=== PATIENT | male | born 1985 | race Caucasian/White ===

== ENCOUNTER 2018-02-17 21:10 | Observation (INO) | payer OTHER ==
[~2018-02-17] VITALS: Ht 188 cm; Wt 69.0 kg
[2018-02-17] MEDS ORDERED: ZIPRASIDONE 40MG CAPSULE PO SCH (21:30)
[2018-02-18] MEDS ORDERED: MIDAZOLAM 1 MG/ML, 2ML ONE (05:57)
[2018-02-18] MEDS ORDERED: ZIPRASIDONE 20 MG INJ IM ONE ×3 (05:57→15:04)
[2018-02-18] MEDS ORDERED: MIDAZOLAM 1 MG/ML, 2ML IM ONE (06:00)
[2018-02-18] MEDS ORDERED: ZIPRASIDONE 20MG CAPSULE ONE (09:46)
[2018-02-18 12:15] LABS: BASOPHILS % (AUTO) 1 % (0-1); EOSINOPHILS # (AUTO) 0.01 x10^3/uL (0-0.4); EOSINOPHILS % (AUTO) 0 % (1-7); LYMPHOCYTES # (AUTO) 1.21 x10^3/uL (1-3.4); LYMPHOCYTES % (AUTO) 11 % (22-44); MD NO; MEAN CORPUSCULAR HEMOGLOBIN 27.2 pg (27.5-34.5); MEAN CORPUSCULAR HGB CONC 32.8 g/dL (33.2-36.2); MEAN CORPUSCULAR VOLUME 82.8 fL (81-97); MEAN PLATELET VOLUME 7.6 fL (7.4-10.4); MONOCYTES # (AUTO) 0.77 x10^3/uL (0.2-0.8); MONOCYTES % (AUTO) 7 % (2-9); NEUTROPHILS # (AUTO) 9.27 x10^3/uL (1.8-6.8); NEUTROPHILS % (AUTO) 82 % (42-75); PLATELET COUNT 385 x10^3/uL (130-400); RED BLOOD COUNT 5.18 x10^6/uL (4.38-5.82); RED CELL DISTRIBUTION WIDTH 16.1 % (9.4-14.8)
[2018-02-18 12:27] LABS: ALANINE AMINOTRANSFERASE 24 U/L (12-78); ALBUMIN 3.7 g/dL (3.4-5.0); ANION GAP 8 mmol/L (5-15); CALCIUM 9.2 mg/dL (8.5-10.1); CHLORIDE 104 mmol/L (98-107); SALICYLATE LEVEL 2.3 mg/dL (2.8-20.0)
[2018-02-18 12:29] LABS: ALKALINE PHOSPHATASE 116 U/L (45-117); BILIRUBIN,TOTAL 0.7 mg/dL (0.2-1.0); CREATININE 0.82 mg/dL (0.7-1.3); TOTAL PROTEIN 8.2 g/dL (6.4-8.2)
[2018-02-18 12:37] LABS: ACETAMINOPHEN < 2 mcg/mL (10-30)
[2018-02-18] MEDS ORDERED: ZIPRASIDONE 20 MG INJ IM PRN (14:30)
[2018-02-18 23:23] LABS: CULTURE INDICATED? YES; MICROSCOPIC INDICATED
[2018-02-18 23:25] LABS: AMPHETAMINE SCREEN, URINE Negative (Negative); BARBITURATE SCREEN, URINE Negative (Negative); BENZODIAZEPINE SCREEN, URINE Positive (Negative); CANNABINOID SCREEN, URINE Negative (Negative); COCAINE SCREEN, URINE Negative (Negative); METHADONE SCREEN, URINE Negative (Negative); OPIATE SCREEN, URINE Negative (Negative)
[2018-02-19] MEDS ORDERED: BENZONATATE 100 MG CAPSULE ONE (06:21)
[2018-02-19] MEDS ORDERED: BENZONATATE 100 MG CAPSULE PO ONE (06:30)
[2018-02-19] MEDS ORDERED: ACETAMINOPHEN 500 MG TABLET ONE (23:26)
[2018-02-19] MEDS ORDERED: ACETAMINOPHEN 500 MG TABLET PO ONE (23:30)
[2018-02-20 00:37] VITALS: BP 129/77
[2018-02-20] MEDS ORDERED: KETOROLAC 30 MG/1 ML IM PRN (05:00)
[2018-02-20] MEDS ORDERED: ONDANSETRON ODT 4 MG PO PRN (05:00)
[2018-02-20] MEDS ORDERED: GUAIFENESIN/DM 200-20MG, 10ML UDC PO PRN (05:00)
[2018-02-20] MEDS ORDERED: ACETAMINOPHEN 500 MG TABLET PO PRN (05:00)
[2018-02-20] MEDS ORDERED: POLYETHYLENE GLYCOL 17 GM PACKET PO PRN (05:00)
[2018-02-20 05:04] VITALS: BP 129/77
[2018-02-20 08:00] VITALS: BP 124/65
[2018-02-20] MEDS: RISPERIDONE 2 MG TABLET PO SCH (20:04)
[2018-02-21 08:01] VITALS: BP 145/77
[2018-02-21] MEDS: CITALOPRAM 20 MG TABLET PO SCH (08:22)
[2018-02-21 08:38] LABS: BASOPHILS # (AUTO) 0.03 x10^3/uL (0-0.1); BASOPHILS % (AUTO) 0 % (0-1); EOSINOPHILS # (AUTO) 0.04 x10^3/uL (0-0.4); EOSINOPHILS % (AUTO) 0 % (1-7); LYMPHOCYTES % (AUTO) 20 % (22-44); MD NO; MEAN CORPUSCULAR HEMOGLOBIN 26.7 pg (27.5-34.5); MEAN CORPUSCULAR HGB CONC 31.6 g/dL (33.2-36.2); MEAN CORPUSCULAR VOLUME 84.5 fL (81-97); MEAN PLATELET VOLUME 7.4 fL (7.4-10.4); MONOCYTES # (AUTO) 0.82 x10^3/uL (0.2-0.8); MONOCYTES % (AUTO) 8 % (2-9); NEUTROPHILS # (AUTO) 7.31 x10^3/uL (1.8-6.8); NEUTROPHILS % (AUTO) 72 % (42-75); PLATELET COUNT 379 x10^3/uL (130-400); RED BLOOD COUNT 4.82 x10^6/uL (4.38-5.82); RED CELL DISTRIBUTION WIDTH 16.7 % (9.4-14.8)
[2018-02-21 08:48] LABS: ANION GAP 5 mmol/L (5-15); CALCIUM 9.3 mg/dL (8.5-10.1); CHLORIDE 105 mmol/L (98-107); CREATININE 0.83 mg/dL (0.7-1.3)
[2018-02-21] MEDS: RISPERIDONE 2 MG TABLET PO SCH ×2 (20:10→21:00)
[2018-02-22] MEDS: CITALOPRAM 20 MG TABLET PO SCH ×2 (08:21→08:25)
[2018-02-22 08:35] VITALS: BP 137/49
[2018-02-22 08:48] LABS: BASOPHILS # (AUTO) 0.09 x10^3/uL (0-0.1); BASOPHILS % (AUTO) 1 % (0-1); EOSINOPHILS # (AUTO) 0.04 x10^3/uL (0-0.4); EOSINOPHILS % (AUTO) 1 % (1-7); LYMPHOCYTES # (AUTO) 1.83 x10^3/uL (1-3.4); LYMPHOCYTES % (AUTO) 19 % (22-44); MD NO; MEAN CORPUSCULAR HEMOGLOBIN 27.1 pg (27.5-34.5); MEAN CORPUSCULAR HGB CONC 32.5 g/dL (33.2-36.2); MEAN CORPUSCULAR VOLUME 83.5 fL (81-97); MEAN PLATELET VOLUME 7.3 fL (7.4-10.4); MONOCYTES # (AUTO) 0.77 x10^3/uL (0.2-0.8); MONOCYTES % (AUTO) 8 % (2-9); NEUTROPHILS # (AUTO) 6.86 x10^3/uL (1.8-6.8); NEUTROPHILS % (AUTO) 72 % (42-75); PLATELET COUNT 404 x10^3/uL (130-400); RED BLOOD COUNT 5.06 x10^6/uL (4.38-5.82)
[2018-02-22 08:59] LABS: ANION GAP 4 mmol/L (5-15); CALCIUM 8.9 mg/dL (8.5-10.1); CHLORIDE 104 mmol/L (98-107)
[2018-02-22 09:00] LABS: CREATININE 0.73 mg/dL (0.7-1.3)
[2018-02-22] MEDS ORDERED: ZIPRASIDONE 20 MG INJ IM ONE (19:30)
[2018-02-22] MEDS: RISPERIDONE 2 MG TABLET PO SCH (20:08)
[2018-02-23 08:05] VITALS: BP 123/72
[2018-02-23] MEDS: IBUPROFEN 600 MG TABLET PO PRN (08:35)
[2018-02-23] MEDS: CITALOPRAM 20 MG TABLET PO SCH (08:35)
[2018-02-23] MEDS: RISPERIDONE 2 MG TABLET PO SCH (20:06)
[2018-02-23] MEDS ORDERED: ZIPRASIDONE 20 MG INJ IM ONE ×2 (20:49→21:00)
[2018-02-24] MEDS ORDERED: ZIPRASIDONE 20 MG INJ IM ONE ×2 (05:47→06:00)
[2018-02-24] MEDS: CITALOPRAM 20 MG TABLET PO SCH (09:23)
[2018-02-24 09:38] VITALS: BP 127/85
[2018-02-24] MEDS: RISPERIDONE 2 MG TABLET PO SCH (20:53)
[2018-02-24] MEDS: ZIPRASIDONE 20 MG INJ IM PRN (23:46)
[2018-02-25] MEDS: CITALOPRAM 20 MG TABLET PO SCH (07:45)
[2018-02-25 07:53] VITALS: BP 114/76
[2018-02-25] MEDS: RISPERIDONE 2 MG TABLET PO SCH (20:37)
[2018-02-25] MEDS: ZIPRASIDONE 20 MG INJ IM PRN (20:37)
[2018-02-26 07:50] VITALS: BP 128/82
[2018-02-26] MEDS: CITALOPRAM 20 MG TABLET PO SCH ×2 (08:10→09:00)
[2018-02-26] MEDS: ZIPRASIDONE 20 MG INJ IM PRN ×2 (10:55→20:05)
[2018-02-26] MEDS: RISPERIDONE 2 MG TABLET PO SCH (20:04)
[2018-02-26 20:29] VITALS: BP 127/72
[2018-02-27] MEDS: CITALOPRAM 20 MG TABLET PO SCH (07:40)
[2018-02-27 08:00] VITALS: BP 131/78
[2018-02-27] MEDS: ZIPRASIDONE 20 MG INJ IM PRN ×2 (09:34→20:04)
[2018-02-27] MEDS ORDERED: LORazepam 1MG TABLET PO PRN ×3 (18:30→22:30)
[2018-02-27] MEDS ORDERED: LORazepam 1MG TABLET PO ONE (19:00)
[2018-02-27] MEDS: RISPERIDONE 2 MG TABLET PO SCH (19:44)
[2018-02-28] MEDS: CITALOPRAM 20 MG TABLET PO SCH ×2 (07:39→08:43)
[2018-02-28] MEDS: IBUPROFEN 600 MG TABLET PO PRN (07:40)
[2018-02-28 07:45] VITALS: BP 150/87
[2018-02-28] MEDS ORDERED: HALOPERIDOL 5 MG/ML ONE (08:12)
[2018-02-28] MEDS ORDERED: HALOPERIDOL 5 MG/ML IM ONE (08:30)
[2018-02-28 09:18] LABS: BASOPHILS # (AUTO) 0.05 x10^3/uL (0-0.1); BASOPHILS % (AUTO) 1 % (0-1); EOSINOPHILS # (AUTO) 0.04 x10^3/uL (0-0.4); EOSINOPHILS % (AUTO) 1 % (1-7); LYMPHOCYTES # (AUTO) 1.89 x10^3/uL (1-3.4); LYMPHOCYTES % (AUTO) 22 % (22-44); MD NO; MEAN CORPUSCULAR HEMOGLOBIN 26.7 pg (27.5-34.5); MEAN CORPUSCULAR HGB CONC 32.1 g/dL (33.2-36.2); MEAN CORPUSCULAR VOLUME 83.1 fL (81-97); MEAN PLATELET VOLUME 7.2 fL (7.4-10.4); MONOCYTES # (AUTO) 0.68 x10^3/uL (0.2-0.8); MONOCYTES % (AUTO) 8 % (2-9); NEUTROPHILS # (AUTO) 6.12 x10^3/uL (1.8-6.8); NEUTROPHILS % (AUTO) 70 % (42-75); PLATELET COUNT 496 x10^3/uL (130-400); RED BLOOD COUNT 4.74 x10^6/uL (4.38-5.82); RED CELL DISTRIBUTION WIDTH 15.5 % (9.4-14.8)
[2018-02-28 09:27] LABS: ANION GAP 9 mmol/L (5-15); CALCIUM 9.7 mg/dL (8.5-10.1); CHLORIDE 101 mmol/L (98-107); CREATININE 0.76 mg/dL (0.7-1.3)
[2018-02-28] MEDS ORDERED: HALOPERIDOL 5 MG/ML IM PRN (12:00)
[2018-02-28] MEDS ORDERED: LORazepam 2 MG/ML, 1ML IM PRN (15:00)
[2018-02-28] MEDS: OLANZAPINE 5 MG TABLET PO SCH (20:17)
[2018-03-01] MEDS: OLANZAPINE 5 MG TABLET PO SCH ×2 (07:27→22:48)
[2018-03-01] MEDS: CITALOPRAM 20 MG TABLET PO SCH (07:34)
[2018-03-01 08:20] VITALS: BP 148/81
[2018-03-01] MEDS: IBUPROFEN 600 MG TABLET PO PRN ×2 (08:27→15:10)
[2018-03-01] MEDS: OLANZAPINE 10 MG INJ IM PRN (16:02)
[2018-03-02] MEDS: ZIPRASIDONE 20 MG INJ IM PRN (01:35)
[2018-03-02] MEDS: OLANZAPINE 10 MG INJ IM PRN ×2 (05:41→15:45)
[2018-03-02] MEDS: IBUPROFEN 600 MG TABLET PO PRN (07:40)
[2018-03-02 08:59] VITALS: BP 119/82
[2018-03-02] MEDS: CITALOPRAM 20 MG TABLET PO SCH (09:00)
[2018-03-02] MEDS: OLANZAPINE 5 MG TABLET PO SCH ×2 (10:08→21:00)
[2018-03-03] MEDS: IBUPROFEN 600 MG TABLET PO PRN ×2 (01:07→10:23)
[2018-03-03 07:24] VITALS: BP 123/80
[2018-03-03] MEDS: OLANZAPINE 5 MG TABLET PO SCH ×2 (07:26→21:46)
[2018-03-03] MEDS: CITALOPRAM 20 MG TABLET PO SCH (07:26)
[2018-03-03 21:51] VITALS: BP 132/83
[2018-03-04] MEDS: CITALOPRAM 20 MG TABLET PO SCH (07:57)
[2018-03-04] MEDS: OLANZAPINE 5 MG TABLET PO SCH ×2 (07:57→20:14)
[2018-03-04 08:30] VITALS: BP 130/79
[2018-03-04] MEDS ORDERED: OLANZAPINE 10 MG INJ IM PRN (14:00)
[2018-03-04] MEDS ORDERED: LORazepam 2 MG/ML, 1ML IM PRN (15:00)
[2018-03-04 19:55] VITALS: BP 119/83
[2018-03-05] MEDS: OLANZAPINE 5 MG TABLET PO SCH ×2 (07:38→21:50)
[2018-03-05 07:47] VITALS: BP 126/81
[2018-03-05] MEDS: OLANZAPINE 5 MG TABLET PO PRN (15:04)
[2018-03-05 19:59] VITALS: BP 112/77
[2018-03-06 07:28] VITALS: BP 125/85
[2018-03-06] MEDS: OLANZAPINE 5 MG TABLET PO SCH ×2 (07:44→20:15)
[2018-03-06 20:18] VITALS: BP 120/78
[2018-03-07] MEDS: OLANZAPINE 5 MG TABLET PO SCH ×3 (08:39→21:00)
[2018-03-08] MEDS: OLANZAPINE 5 MG TABLET PO PRN (00:41)
[2018-03-08 00:42] VITALS: BP 127/68
[2018-03-08 07:00] VITALS: BP 112/74
[2018-03-08] MEDS: OLANZAPINE 5 MG TABLET PO SCH ×2 (08:44→21:50)
[2018-03-08 19:21] VITALS: BP 114/79
[2018-03-09 07:19] VITALS: BP 117/77
[2018-03-09] MEDS: OLANZAPINE 5 MG TABLET PO SCH ×2 (07:43→21:00)
[2018-03-09 21:53] VITALS: BP 115/69
[2018-03-10 08:00] VITALS: BP 126/77
[2018-03-10] MEDS: OLANZAPINE 5 MG TABLET PO SCH (08:23)
[2018-03-10] MEDS ORDERED: ONDA4TAB13 PO (12:41)
[2018-03-10] MEDS ORDERED: OLAN10VI2 IM (12:41)
[2018-03-10] MEDS ORDERED: OLAN5TAB9 PO (12:41)
[2018-03-10] MEDS ORDERED: ACET500T71 PO (12:41)
[2018-03-10] MEDS ORDERED: HALO5VIA2 IM (12:42)
== END 2018-03-10 13:20 ==
LOC: ED 02-18 05:02 → EDIP 02-18 05:15 → 2N 02-20 00:33
PROVIDERS: ADMIT Hospitalist; ATTEND Hospitalist
DX: F20.9 Schizophrenia, unspecified (principal); F23 Brief psychotic disorder; F22 Delusional disorders; L53.9 Erythematous condition, unspecified; Z91.19 Patient's noncompliance with other medical treatment and regimen; Z78.1 Physical restraint status
CPT/HCPCS: 36415; 80048; 80053; 80307; 80329; 81001; 85025; 87086; 96372; 99284; G0378; J1630; J2250; J3486; G0480